=== PATIENT | female | born 1955 | race Caucasian/White ===

== ENCOUNTER 2016-11-23 08:46 | Emergency (ER) | payer BC ==
[2016-11-23 08:54] VITALS: BMI 32.5
[2016-11-23 09:33] VITALS: BP 108/63; PULSE 58; RESP 18; TEMP 98.3; O2SAT 100
--- NOTE | 2016-11-23 10:10 | ED PDOC ---
HPI: Female Pain Time Seen by Provider: 11/23/16 09:10 Chief Complaint (Nursing): Female Genitourinary Chief Complaint (Provider): Female Genitourinary History Per: Patient History/Exam Limitations: no limitations Onset/Duration Of Symptoms: Days (x2-3 days) Current Symptoms Are (Timing): Still Present Additional Complaint(s): Corin Francis is a 61 year old female with a previous medical history of diabetes and hypertension, who presents to the emergency department with a complaint of irritation of her perineal area for an onset of 2-3 days. She denies any vaginal bleeding, drainage or fevers. PMD: Angella Cuenca MD Past Medical History Reviewed: Historical Data, Nursing Documentation, Vital Signs Vital Signs: Last Vital Signs Temp 98.3 F 11/23/16 09:13 Pulse 58 L 11/23/16 09:13 Resp 18 11/23/16 09:13 BP 108/63 11/23/16 09:13 Pulse Ox 100 11/23/16 09:13 - Medical History PMH: Diabetes, HTN - Family History Family History: States: Unknown Family Hx - Home Medications Home Medications: Ambulatory Orders Medication Instructions Recorded Naproxen [Naprosyn] 500 mg PO BID PRN #15 tablet 11/23/16 Sulfamethoxazole/Trimethoprim 1 tab PO BID #20 tab 11/23/16 [Bactrim DS 800 mg-160 mg] - Allergies Allergies/Adverse Reactions: Allergies Allergy/AdvReac Type Severity Reaction Status Date / Time No Known Allergies Allergy Verified 11/23/16 09:29 Review of Systems ROS Statement: Except As Marked, All Systems Reviewed And Found Negative Constitutional: Negative for: Fever, Chills Genitourinary Female: Positive for: Other (irritation to her perineal area). Negative for: Vaginal Discharge, Vaginal Bleeding Physical Exam - Reviewed Nursing Documentation Reviewed: Yes Vital Signs Reviewed: Yes - Physical Exam Appears: Positive for: Well, Non-toxic, No Acute Distress Cardiovascular/Chest: Positive for: Regular Rate, Rhythm Respiratory: Positive for: Normal Breath Sounds Pelvic Exam: Positive for: Other (2cm area of induration to left labia majora with tenderness. No flucuation, lesions, erythema or vesicles ). Negative for: External Exam Normal Neurologic/Psych: Positive for: Alert, Oriented - ECG O2 Sat by Pulse Oximetry: 100 (RA) Pulse Ox Interpretation: Normal Medical Decision Making Medical Decision Making: Initial Impression: Bartholin gland cyst Initial Plan: Physical Exam Disposition Upon provider evaluation patient is medically stable, and requires no further treatment in the ED at this time. Patient will be discharged home with Rx for bactrim and naprosynt. Counseling was provided and all questions were answered regarding diagnosis and need for follow up with PHARMACIST MANAGER. There is agreement to discharge plan. Return if symptoms persist or worsen. Scribe Attestation: Documented by Nicki Lamb, acting as a scribe for Deann Amaro MD. Provider Scribe Attestation: All medical record entries made by the Scribe were at my direction and personally dictated by me. I have reviewed the chart and agree that the record accurately reflects my personal performance of the history, physical exam, medical decision making, and the department course for this patient. I have also personally directed, reviewed, and agree with the discharge instructions and disposition. Disposition - Clinical Impression Clinical Impression: Bartholin's gland infection - Patient ED Disposition Is Patient to be Admitted: No Doctor Will See Patient In The: Office Counseled Patient/Family Regarding: Studies Performed, Diagnosis, Need For Followup, Rx Given - Disposition Disposition: Routine/Home Disposition Time: 09:29 Condition: STABLE Additional Instructions: FOLLOW-UP WITH YOUR OB-TANK TRUCK OPERATOR WITHIN 2 DAYS FOR REEVALUATION. Prescriptions: Naproxen [Naprosyn] 500 mg PO BID PRN #15 tablet PRN Reason: Pain, Moderate (4-7) Sulfamethoxazole/Trimethoprim [Bactrim DS 800 mg-160 mg] 1 tab PO BID #20 tab Instructions: Bartholin Cyst (ED) Forms: [facility] ED School/Work Excuse Print Language: IRISH
== END 2016-11-23 09:43 | disposition home or self-care (01) ==
LOC: H.ER 08:46
DX: N75.1 Abscess of Bartholin's gland (principal)